=== PATIENT | female | born 1995 | race Two or more races ===

== ENCOUNTER 2023-12-03 10:39 | Day surgery (SDC) | payer BC ==
[2023-12-02 10:03] VITALS: BMI 31.1
[2023-12-02 10:23] LABS: Hematocrit 35.4 % (34.9-44.5); Hemoglobin 10.8 g/dL (12.0-15.5); Mean Corpuscular HGB CONC 30.5 g/dL (32.0-36.0); Mean Corpuscular Hemoglobin 23.9 pg (27.0-33.0); Mean Corpuscular Volume 78.3 fL (81.6-98.3); Platelet Count 352 10x3/uL (150-450); RBC Distribution Width 14.7 % (11.5-14.5); Red Blood Cell (RBC) Count 4.52 10x6/uL (3.90-5.03); White Blood Cell (WBC) Count 8.8 10x3/uL (3.5-10.5)
[2023-12-02 11:06] LABS: BHCG - Serum Negative (NEGATIVE); Pregs Control Background? CLEAR/WHITE (CLR/WHITE); Pregs Control Bar Appear? YES (CONTROL BAR)
[2023-12-03] MEDS ORDERED: PROPOFOL 20 ML ONE (11:23)
[2023-12-03] MEDS ORDERED: Lidocaine 1% PF 5 ML VIAL ONE (11:24)
[2023-12-03] MEDS ORDERED: fentaNYL 50 mcg/mL 1 mL Vial ONE (11:24)
[2023-12-03] MEDS ORDERED: Dexamethasone 4 mg/ml Vial ONE (11:24)
[2023-12-03] MEDS ORDERED: Ondansetron PF 4 MG/2 ML Vial ONE (11:24)
[2023-12-03] MEDS ORDERED: CEFAZOLIN 2 GM VIAL ONE (11:40)
[2023-12-03] MEDS ORDERED: Midazolam HCl 2 mg/2 ml Vial ONE (11:42)
[2023-12-03] MEDS ORDERED: Midazolam HCl 2 mg/2 ml Vial IVP PRN (12:03)
[2023-12-03] MEDS ORDERED: Ketorolac Tromethamine 30 MG (1 mL) VIAL ONE (13:05)
== END 2023-12-03 14:10 | disposition home or self-care (01) ==
LOC: CSHSDC 10:39
PROVIDERS: ATTEND Obstetrics & Gynecology
PROC: 0U5B8ZZ Destruction of Endometrium, Via Natural or Artificial Opening Endoscopic (ICD-10-PCS; principal; 2023-12-03)
DX: N84.0 Polyp of corpus uteri (principal); K21.9 Gastro-esophageal reflux disease without esophagitis
CPT/HCPCS: 36415; 84703; 85027; 86850; 86900; 86901; 88305; J1100; J1885; J2250; J2405; J2704; J3010